=== PATIENT | male | born 1970 | race Caucasian/White ===

== ENCOUNTER 2021-06-03 06:34 | Day surgery (SDC) | payer OTHER ==
[2021-06-03] MEDS ORDERED: Bupivacaine 0.5% 50 ML MDV ONE (06:40)
[2021-06-03] MEDS ORDERED: Bupivacaine 0.5%/EPINEPHrine 1:200,000 50 ML MDV ONE (06:40)
[2021-06-03] MEDS ORDERED: Lidocaine 1% with EPINEPHrine 1:100,000 50 ML MDV ONE (06:40)
[2021-06-03] MEDS ORDERED: Sodium Chloride 0.9% 1,000 ML IV SCH (07:00)
[2021-06-03] MEDS ORDERED: Midazolam 1 MG/ML 2 ML SDV ONE (07:28)
[2021-06-03] MEDS ORDERED: fentaNYL 100 MCG/2 ML SDV ONE ×2 (07:28→08:02)
[2021-06-03] MEDS ORDERED: Propofol 200 MG/20 ML SDV ONE ×2 (07:28→08:09)
[2021-06-03] MEDS ORDERED: ceFAZolin 2 GM in Premix Bag 1 BAG IV ONE (07:30)
[2021-06-03] MEDS ORDERED: metroNIDAZOLE/Normal Saline 500 MG in Premix Bag 1 BAG IV ONE (07:30)
[2021-06-03] MEDS ORDERED: Ropivacaine 46 ML, dexAMETHasone 8 MG, EPINEPHrine 0.4 MG, Sodium Chloride 0.9% 31.6 ML NERVRT SCH ×4 (07:45)
[2021-06-03] MEDS ORDERED: Ketorolac 30 MG/ML SDV ONE (08:09)
[2021-06-03] MEDS ORDERED: Acetaminophen/HYDROcodone 325-5 MG Tab PO PRN (09:48)
--- NOTE | 2021-06-04 07:22 | OR ---
DATE OF PROCEDURE: 06/03/2021 SURGEON: Satnam Warren MD PROCEDURE: Open inguinal hernia, left. COMPLICATIONS: None. MAIL SERVICE COORDINATOR: None. ANESTHESIA: MAC. PREOPERATIVE DIAGNOSIS: Incarcerated non-strangulated left inguinal hernia. POSTOPERATIVE DIAGNOSIS: Incarcerated non-strangulated left inguinal hernia. RISKS: Risks, benefits, alternatives, and limitations including, but not limited to, infection, bleeding, injury to testicle resulting in testicular loss, chronic wounds, chronic pain, requirement for reoperation, failure rates, and other risks not listed here were explained to the patient who wished to proceed. PROCEDURE IN DETAIL: The patient was placed in the supine position. The left inguinal area was marked by the patient preoperatively. A curvilinear incision was made. This was then carried down with electrocautery to the external oblique aponeurosis. It was opened sharply with a 15 blade and subsequently with Metzenbaum scissors. The cord structures were identified and surrounded. The hernia structure was noted to be incarcerated with non- strangulated fat. This was able to be reduced back into the abdomen. An extra-large plug and patch system was then placed without difficulty, sutured and/or tacked into place approximately every 5 mm. The tails of the mesh were also tacked into place with careful attention not to make undue tension on the cord structures. External oblique aponeurosis closed with 3-0 Vicryl running suture. The subcutaneous tissues were closed with 3-0 Vicryl. Skin was closed 4-0 Vicryl running fashion. The patient tolerated the procedure well. Satnam Warren MD /[id number]
--- NOTE | 2021-06-04 07:27 | OR ---
DATE OF PROCEDURE: 06/03/2021 SURGEON: Satnam Warren MD PROCEDURE: 1. Bilateral transversus abdominis plane blocks. 2. Bilateral rectus sheath blocks. COMPLICATION: None. CURTAIN SUPERVISOR: None. RISKS: Risks, benefits, alternatives, and limitations including, but not limited to infection, bleeding, and injury to abdominal structures were all explained to the patient and wished to proceed. PROCEDURE IN DETAIL: The patient was placed in supine position. The left transverse abdominis plane was identified first. This was injected with 20% solution under direct ultrasound guidance. This was then repeated on the right side. Bilateral rectus sheaths were also injected under direct visualization in the preperitoneal space. 20% solution was injected in each of these respectively. All 4 injected in the same manner, same fashion, same technique, in the same sequence using the same equipment. The patient tolerated procedure well. Satnam Warren MD /[id number]
== END 2021-06-03 11:49 | disposition home or self-care (01) ==
LOC: JP.SDS 06:34
PROVIDERS: ATTEND Surgery
DX: K40.30 Unilateral inguinal hernia, with obstruction, without gangrene, not specified as recurrent (principal); E66.9 Obesity, unspecified; Z68.27 Body mass index [BMI] 27.0-27.9, adult
CPT/HCPCS: 49507; A9270; C1713; C1781; J0171; J0690; J1100; J1885; J2250; J2704; J2795; J3010; J3490; J7030

== ENCOUNTER 2021-09-27 07:30 | Day surgery (SDC) | payer MEDICAID ==
[~2021-09-27 07:30] MED LIST: Midazolam 1 MG/ML 2 ML SDV ONE; Propofol 200 MG/20 ML SDV ONE; fentaNYL 100 MCG/2 ML SDV ONE
[2021-09-27 08:28] LABS: CORONAVIRUS COVID-19 NAA NEGATIVE (NEGATIVE)
[2021-09-27] MEDS ORDERED: Sodium Chloride 0.9% 1,000 ML IV SCH (08:45)
== END 2021-09-27 10:49 | disposition home or self-care (01) ==
LOC: JP.SDS 07:30
PROVIDERS: ATTEND Family Medicine
DX: K92.1 Melena (principal); Z01.812 Encounter for preprocedural laboratory examination; Z20.822 Contact with and (suspected) exposure to COVID-19
CPT/HCPCS: 0241U; J2250; J2704; J3010; J7030